=== PATIENT | male | born 1980 | race African-American/Black ===

== ENCOUNTER 2017-07-19 20:08 | Inpatient (IN) | payer MEDICAID, OTHER ==
[~2017-07-19] VITALS: Ht 177.8 cm; Wt 75.7 kg
[2017-07-19] MEDS ORDERED: DiphenhydrAMINE HCL 50 MG/ML VIAL IM ONE (21:45)
[2017-07-19] MEDS ORDERED: LORazepam 2 MG/ML VIAL IM ONE (21:45)
[2017-07-19] MEDS ORDERED: HALOPERIDOL LACTATE 5 MG/ML VIAL IM ONE (21:45)
[2017-07-20] MEDS ORDERED: LORazepam 2 MG TABLET PO PRN (04:30)
[2017-07-20] MEDS ORDERED: OLANZapine 5 MG RAPDIS TABLET PO PRN (04:30)
[2017-07-20] MEDS ORDERED: ZOLPIDEM TARTRATE 10 MG TABLET PO PRN (04:30)
[2017-07-20] MEDS ORDERED: INFLUENZA VIRUS VACCINE QVS 2017-18 (3YR+)/PF 60 MCG/0.5 ML SYRINGE IM ONE (05:45)
[2017-07-20 05:58] VITALS: BP 149/80
[2017-07-20] MEDS ORDERED: PROMETHAZINE HCL 25 MG TABLET PO PRN (09:30)
[2017-07-20] MEDS ORDERED: ACETAMINOPHEN 325 MG TABLET PO PRN (09:30)
[2017-07-20] MEDS ORDERED: MAG HYDROX/AL HYDROX/SIMETH ES 30 ML SUSPENSION UDCUP PO PRN (09:30)
[2017-07-20] MEDS ORDERED: MAGNESIUM HYDROXIDE SUSPENSION 30 ML UDCUP PO PRN (09:30)
[2017-07-20] MEDS ORDERED: LOPERAMIDE HCL 2 MG CAPSULE PO PRN (09:30)
[2017-07-20] MEDS ORDERED: HydrOXYzine PAMOATE 50 MG CAPSULE PO PRN (09:30)
[2017-07-20] MEDS ORDERED: TUBERCULIN, PURIFIED PROTEIN DERIVATIVE 5 TU/0.1 ML SYG ID ONE (09:30)
[2017-07-20] MEDS ORDERED: GuaiFENesin/D-METHORPHAN [SUGAR-FREE] 200-20MG/10 ML SYRUP UDCUP PO PRN (09:30)
[2017-07-20] MEDS ORDERED: CloNIDine HCL 0.1 MG TABLET PO PRN (10:30)
[2017-07-20] MEDS: THIAMINE HCL 100 MG TABLET PO SCH (17:00)
[2017-07-20] MEDS: OLANZapine 5 MG RAPDIS TABLET PO SCH (20:45)
[2017-07-21] MEDS: NALTREXONE HCL 50 MG TABLET PO SCH (08:21)
[2017-07-21] MEDS: FOLIC ACID 1 MG TABLET PO SCH (08:21)
[2017-07-21] MEDS: MULTIVITAMINS WITH MINERALS, THERAPEUTIC TABLET PO SCH (08:21)
[2017-07-21] MEDS: THIAMINE HCL 100 MG TABLET PO SCH ×2 (08:22→17:00)
[2017-07-21] MEDS: OLANZapine 5 MG RAPDIS TABLET PO SCH (20:37)
[2017-07-22] MEDS: NALTREXONE HCL 50 MG TABLET PO SCH (08:35)
[2017-07-22] MEDS: THIAMINE HCL 100 MG TABLET PO SCH ×2 (08:35→16:54)
[2017-07-22] MEDS: FOLIC ACID 1 MG TABLET PO SCH (08:35)
[2017-07-22] MEDS: MULTIVITAMINS WITH MINERALS, THERAPEUTIC TABLET PO SCH (08:35)
[2017-07-22 19:23] VITALS: BP 126/85
[2017-07-22] MEDS: OLANZapine 5 MG RAPDIS TABLET PO SCH (20:11)
[2017-07-23 06:23] VITALS: BP 115/68
[2017-07-23 08:18] VITALS: BP 123/65
[2017-07-23] MEDS: FOLIC ACID 1 MG TABLET PO SCH (09:43)
[2017-07-23] MEDS: THIAMINE HCL 100 MG TABLET PO SCH (09:43)
[2017-07-23] MEDS: MULTIVITAMINS WITH MINERALS, THERAPEUTIC TABLET PO SCH (09:43)
[2017-07-23] MEDS: NALTREXONE HCL 50 MG TABLET PO SCH (09:44)
[2017-07-23] MEDS ORDERED: NALT50TA6 PO (11:45)
[2017-07-23] MEDS ORDERED: OLAN5TAB40 PO (11:45)
== END 2017-07-23 13:40 | disposition home or self-care (01) | DRG 750 ==
LOC: EMS 20:14 → B3A 07-20 04:33
PROVIDERS: ADMIT Psychiatry & Neurology Psychiatry; ATTEND Psychiatry & Neurology Psychiatry
DX: F25.0 Schizoaffective disorder, bipolar type (principal); F39 Unspecified mood [affective] disorder; F15.10 Other stimulant abuse, uncomplicated; Z71.51 Drug abuse counseling and surveillance of drug abuser; F17.210 Nicotine dependence, cigarettes, uncomplicated; G47.00 Insomnia, unspecified; K59.00 Constipation, unspecified; Z65.3 Problems related to other legal circumstances; Z91.19 Patient's noncompliance with other medical treatment and regimen; Z28.21 Immunization not carried out because of patient refusal
CPT/HCPCS: 96372; 99285; J1200; J1630; J2060

== ENCOUNTER 2017-09-06 17:59 | Inpatient (IN) | payer MEDICAID, OTHER ==
[~2017-09-06] VITALS: Ht 175.3 cm; Wt 75.4 kg
[~2017-09-06 17:59] MED LIST: NALT50TA6 PO; OLAN5TAB40 PO
[2017-09-06] MEDS ORDERED: LURA20TA PO (18:27)
[2017-09-06] MEDS ORDERED: BUPR75 PO (18:27)
[2017-09-06] MEDS ORDERED: DiphenhydrAMINE HCL 50 MG/ML VIAL IM ONE (19:30)
[2017-09-06] MEDS ORDERED: LORazepam 2 MG/ML VIAL IM ONE (19:30)
[2017-09-06] MEDS ORDERED: HALOPERIDOL LACTATE 5 MG/ML VIAL IM ONE (19:30)
[2017-09-06] MEDS ORDERED: LORazepam 2 MG TABLET PO PRN (20:30)
[2017-09-06] MEDS ORDERED: OLANZapine 5 MG RAPDIS TABLET PO PRN (20:30)
[2017-09-07 16:00] VITALS: BP 131/73
[2017-09-07] MEDS ORDERED: GuaiFENesin/D-METHORPHAN [SUGAR-FREE] 200-20MG/10 ML SYRUP UDCUP PO PRN (16:15)
[2017-09-07] MEDS ORDERED: MAG HYDROX/AL HYDROX/SIMETH ES 30 ML SUSPENSION UDCUP PO PRN (16:15)
[2017-09-07] MEDS ORDERED: LOPERAMIDE HCL 2 MG CAPSULE PO PRN (16:15)
[2017-09-07] MEDS ORDERED: MAGNESIUM HYDROXIDE SUSPENSION 30 ML UDCUP PO PRN (16:15)
[2017-09-07] MEDS ORDERED: PALIPERIDONE PALMITATE 234 MG/1.5 ML SYRINGE IM ONE (16:15)
[2017-09-07] MEDS ORDERED: PALIPERIDONE 3 MG ER TABLET PO PRN (16:15)
[2017-09-07] MEDS ORDERED: HydrOXYzine PAMOATE 50 MG CAPSULE PO PRN (16:15)
[2017-09-07] MEDS ORDERED: ACETAMINOPHEN 325 MG TABLET PO PRN (16:15)
[2017-09-07] MEDS ORDERED: PROMETHAZINE HCL 25 MG TABLET PO PRN (16:15)
[2017-09-07] MEDS: THIAMINE HCL 100 MG TABLET PO SCH (17:25)
[2017-09-07] MEDS ORDERED: INFLUENZA VIRUS VACCINE QVS 2017-18 (3YR+)/PF 60 MCG/0.5 ML SYRINGE IM ONE (19:00)
[2017-09-07] MEDS: PALIPERIDONE 3 MG ER TABLET PO SCH (20:41)
[2017-09-07] MEDS: ZOLPIDEM TARTRATE 10 MG TABLET PO PRN (20:41)
[2017-09-08 07:06] VITALS: BP 122/82
[2017-09-08 08:31] VITALS: BP 133/73
[2017-09-08] MEDS: MULTIVITAMINS WITH MINERALS, THERAPEUTIC TABLET PO SCH (09:08)
[2017-09-08] MEDS: THIAMINE HCL 100 MG TABLET PO SCH ×2 (09:08→16:58)
[2017-09-08] MEDS: FOLIC ACID 1 MG TABLET PO SCH (09:08)
[2017-09-08 16:00] VITALS: BP 130/76
[2017-09-08] MEDS ORDERED: NALT50TA6 PO (17:53)
[2017-09-08] MEDS ORDERED: BUPR-47 PO (17:53)
[2017-09-08] MEDS ORDERED: PALI3 PO (17:53)
[2017-09-08] MEDS: ZOLPIDEM TARTRATE 10 MG TABLET PO PRN (20:29)
[2017-09-08] MEDS: PALIPERIDONE 3 MG ER TABLET PO SCH (20:29)
[2017-09-08] MEDS ORDERED: BuPROPion HCL XL 150 MG ER TABLET PO SCH (21:00)
[2017-09-09 06:39] VITALS: BP 133/78
[2017-09-09 08:28] VITALS: BP 132/78
[2017-09-09] MEDS ORDERED: NALTREXONE HCL 50 MG TABLET PO SCH (09:00)
[2017-09-09] MEDS ORDERED: BUPR-93 PO (09:08)
[2017-09-09] MEDS ORDERED: PALI3 PO (09:10)
[2017-09-09] MEDS: MULTIVITAMINS WITH MINERALS, THERAPEUTIC TABLET PO SCH (09:19)
[2017-09-09] MEDS: FOLIC ACID 1 MG TABLET PO SCH (09:19)
[2017-09-09] MEDS: THIAMINE HCL 100 MG TABLET PO SCH (09:19)
[2017-09-11] MEDS ORDERED: PALIPERIDONE PALMITATE 156 MG/ML SYRINGE IM ONE (09:00)
== END 2017-09-09 13:20 | disposition home or self-care (01) | DRG 750 ==
LOC: EMS 19:08 → B3A 09-07 13:26
PROVIDERS: ADMIT Psychiatry & Neurology Psychiatry; ATTEND Psychiatry & Neurology Psychiatry
DX: F20.0 Paranoid schizophrenia (principal); Z91.19 Patient's noncompliance with other medical treatment and regimen; F15.10 Other stimulant abuse, uncomplicated; F10.10 Alcohol abuse, uncomplicated; F17.210 Nicotine dependence, cigarettes, uncomplicated; G47.00 Insomnia, unspecified; K59.00 Constipation, unspecified; Z71.6 Tobacco abuse counseling; Z71.51 Drug abuse counseling and surveillance of drug abuser; Z65.3 Problems related to other legal circumstances; Z71.41 Alcohol abuse counseling and surveillance of alcoholic; Z28.21 Immunization not carried out because of patient refusal
CPT/HCPCS: 90471; 96372; 99285; J1200; J1630; J2060

== ENCOUNTER 2020-07-26 10:38 | Inpatient (IN) | payer MEDICAID, OTHER ==
[~2020-07-26] VITALS: Ht 177.8 cm; Wt 69.4 kg
[~2020-07-26 10:38] MED LIST changes: +BUPR-47 PO; +BUPR-93 PO; -OLAN5TAB40 PO; +PALI3TAB14 PO
[2020-07-26] MEDS ORDERED: LORazepam 2 MG/ML VIAL IM ONE (13:45)
[2020-07-26] MEDS ORDERED: HALOPERIDOL LACTATE 5 MG/ML VIAL IM ONE (13:45)
[2020-07-26] MEDS ORDERED: ZOLPIDEM TARTRATE 10 MG TABLET PO PRN (15:45)
[2020-07-26] MEDS ORDERED: HALOPERIDOL 5 MG TABLET PO PRN (15:45)
[2020-07-26] MEDS ORDERED: LORazepam 2 MG TABLET PO PRN (15:45)
[2020-07-26 15:47] LABS: COVID AG,FIA SOURCE NASOPHARYNGEAL
[2020-07-26 16:56] LABS: BASOPHILS % (AUTO) 0.5 % (0.0-2.0); HEMATOCRIT 44.4 % (41-53); HEMOGLOBIN 15.5 g/dL (13.5-17.5); LYMPHOCYTES # (AUTO) 2.2 K/uL (1.0-4.8); LYMPHOCYTES % (AUTO) 34.7 % (22.0-44.0); MEAN CORPUSCULAR HEMOGLOBIN 32.5 pg (26.0-34.0); MEAN CORPUSCULAR HGB CONC 34.9 G/dL (31.0-37.0); MEAN CORPUSCULAR VOLUME 93 fL (80-100); MONOCYTES # (AUTO) 0.4 K/uL (0.1-1.0); MONOCYTES % (AUTO) 6.3 % (2.0-9.0); NEUTROPHILS # (AUTO) 3.7 K/uL (1.8-7.7); NEUTROPHILS % (AUTO) 57.5 % (40.0-70.0); PLATELET COUNT (AUTO) 248 K/uL (150-450); RED BLOOD CELL COUNT(AUTO) 4.78 MIL/uL (4.50-5.90); RED CELL DISTRIBUTION WIDTH 13.7 % (11.5-14.5)
[2020-07-26 17:03] LABS: ANION GAP 8 mmol/L (8-16); CALCIUM, TOTAL 9.5 mg/dL (8.8-10.5); CARBON DIOXIDE 28 mmol/L (22-29); CHLORIDE 105 mmol/L (98-107); CREATININE 0.83 mg/dL (0.60-1.30); GLOMERULAR FILTR. RATE CALC > 60 mL/min (>60); GLUCOSE,RANDOM 149 mg/dL (70-110); POTASSIUM 3.5 mmol/L (3.5-5.1); SODIUM SERUM 141 mmol/L (136-145); UREA NITROGEN, BLOOD 11 mg/dL (7-18)
[2020-07-26 17:08] LABS: ALANINE AMINOTRANSFERASE 18 U/L (12-78); ALBUMIN 3.6 g/dL (3.4-5.0); ALKALINE PHOSPHATASE 62 U/L (46-116); ASPARTATE AMINOTRANSFERASE 18 U/L (15-37); BILIRUBIN,TOTAL 0.4 mg/dL (0.1-1.0); TOTAL PROTEIN, SERUM 7.2 g/dL (6.4-8.2)
[2020-07-26 19:15] VITALS: BP 138/92
[2020-07-26] MEDS ORDERED: INFLUENZA VIRUS VACCINE QVS 2020-21 (6MO+)/PF 60 MCG/0.5 ML SYRINGE IM ONE (19:45)
[2020-07-27 06:23] VITALS: BP 129/88
[2020-07-27 08:22] VITALS: BP 131/87
[2020-07-27] MEDS ORDERED: IBUPROFEN 400 MG TABLET PO PRN (09:15)
[2020-07-27] MEDS ORDERED: PETROLATUM,WHITE 28 GM JELLY TP PRN (09:15)
[2020-07-27] MEDS ORDERED: MAGNESIUM HYDROXIDE SUSPENSION 30 ML UDCUP PO PRN (09:15)
[2020-07-27] MEDS ORDERED: LOPERAMIDE HCL 2 MG CAPSULE PO PRN (09:15)
[2020-07-27] MEDS ORDERED: NICOTINE 14 MG/24 HOUR PATCH TD PRN (09:15)
[2020-07-27] MEDS ORDERED: ACETAMINOPHEN 325 MG TABLET PO PRN (09:15)
[2020-07-27] MEDS ORDERED: MAG HYDROX/AL HYDROX/SIMETH ES 30 ML SUSPENSION UDCUP PO PRN (09:15)
[2020-07-27] MEDS ORDERED: CloNIDine HCL 0.1 MG TABLET PO PRN (09:15)
[2020-07-27] MEDS ORDERED: GuaiFENesin/D-METHORPHAN [SUGAR-FREE] 200-20MG/10 ML SYRUP UDCUP PO PRN (09:15)
[2020-07-27] MEDS ORDERED: ALBUTEROL SULFATE HFA 90 MCG/PUFF 8 GM INHALER IH PRN (09:15)
[2020-07-27] MEDS ORDERED: DOCUSATE SODIUM 100 MG CAPSULE PO PRN (09:15)
[2020-07-27] MEDS ORDERED: ONDANSETRON HCL 4 MG TABLET PO PRN (09:15)
[2020-07-27] MEDS: BuPROPion HCL XL 150 MG ER TABLET PO SCH (20:08)
[2020-07-27] MEDS: PALIPERIDONE 3 MG ER TABLET PO SCH (20:08)
[2020-07-28 04:30] VITALS: BP 111/66
[2020-07-28 08:18] VITALS: BP 127/67
[2020-07-28 16:00] VITALS: BP 136/92
[2020-07-28] MEDS: PALIPERIDONE 3 MG ER TABLET PO SCH (20:08)
[2020-07-28] MEDS: BuPROPion HCL XL 150 MG ER TABLET PO SCH (20:08)
[2020-07-29 04:00] VITALS: BP 111/66
[2020-07-29 08:09] VITALS: BP 114/80
[2020-07-29] MEDS ORDERED: PALI3TAB14 PO (08:41)
[2020-07-29] MEDS ORDERED: BUPR-47 PO (08:41)
== END 2020-07-29 13:20 | disposition home or self-care (01) | DRG 750 ==
LOC: EMS 10:38 → B3A 16:31
DX: F25.1 Schizoaffective disorder, depressive type (principal); F15.10 Other stimulant abuse, uncomplicated; F41.9 Anxiety disorder, unspecified; K59.00 Constipation, unspecified; R73.9 Hyperglycemia, unspecified; Z20.828 Contact with and (suspected) exposure to other viral communicable diseases; R45.850 Homicidal ideations; Z56.0 Unemployment, unspecified; Z78.1 Physical restraint status; Z79.899 Other long term (current) drug therapy; Z28.21 Immunization not carried out because of patient refusal; Z72.89 Other problems related to lifestyle
CPT/HCPCS: 87426; 90686; G0480; J1630; J2060

== ENCOUNTER 2023-04-12 17:28 | Emergency (ER) | payer MEDICAID ==
[~2023-04-12] VITALS: Ht 175.3 cm; Wt 77.3 kg
[~2023-04-12 17:28] MED LIST changes: -BUPR-47 PO; +BUPR-49 PO; -BUPR-93 PO; -NALT50TA6 PO
[2023-04-12 17:43] VITALS: BP 142/96; PULSE 121; RESP 18; TEMP 98.8
== END 2023-04-12 23:12 | disposition left against medical advice (07) ==
LOC: EMS 17:29
DX: Z53.21 Procedure and treatment not carried out due to patient leaving prior to being seen by health care provider (principal)
CPT/HCPCS: 99281; Z7502

== ENCOUNTER 2024-07-09 20:51 | Inpatient (IN) | payer MEDICAID, OTHER ==
[~2024-07-09] VITALS: Ht 177.8 cm; Wt 81.6 kg
[2024-07-10 01:06] LABS: GLUCOMETER DEV NAME(LOC) POC.BV; POC SARS-COV2 AG, FIA NEGATIVE (NEGATIVE)
[2024-07-10] MEDS ORDERED: ZOLPIDEM TARTRATE 10 MG TABLET PO PRN (01:15)
[2024-07-10] MEDS: HALOPERIDOL 5 MG TABLET PO PRN (03:17)
[2024-07-10] MEDS: LORazepam 2 MG TABLET PO PRN (03:18)
[2024-07-10 03:27] VITALS: BP 148/98; PULSE 67; RESP 18; TEMP 97.9; O2SAT 97
[2024-07-10] MEDS ORDERED: MAGNESIUM HYDROXIDE SUSPENSION 30 ML UDCUP PO PRN (07:00)
[2024-07-10] MEDS ORDERED: PETROLATUM,WHITE 28 GM JELLY TP PRN (07:00)
[2024-07-10] MEDS ORDERED: GuaiFENesin/D-METHORPHAN [SUGAR-FREE] 200-20MG/10 ML SYRUP UDCUP PO PRN (07:00)
[2024-07-10] MEDS ORDERED: MAG HYDROX/ALUMINUM HYD/SIMETH ES 30 ML SUSPENSION UDCUP PO PRN (07:00)
[2024-07-10] MEDS ORDERED: ALBUTEROL SULFATE HFA 90 MCG/PUFF 8 GM INHALER IH PRN (07:00)
[2024-07-10] MEDS ORDERED: DOCUSATE SODIUM 100 MG CAPSULE PO PRN (07:00)
[2024-07-10] MEDS ORDERED: IBUPROFEN 400 MG TABLET PO PRN (07:00)
[2024-07-10] MEDS ORDERED: CloNIDine HCL 0.1 MG TABLET PO PRN (07:00)
[2024-07-10] MEDS ORDERED: ONDANSETRON 4 MG TABLET PO PRN (07:00)
[2024-07-10] MEDS ORDERED: LOPERAMIDE HCL 2 MG CAPSULE PO PRN (07:00)
[2024-07-10] MEDS ORDERED: ACETAMINOPHEN 325 MG TABLET PO PRN (07:00)
[2024-07-10] MEDS ORDERED: NICOTINE 14 MG/24 HOUR PATCH TD PRN (07:00)
[2024-07-10 08:23] VITALS: BP 120/69; PULSE 58; RESP 17; TEMP 97.5; O2SAT 97
[2024-07-10 08:49] LABS: BASOPHILS % (AUTO) 0.9 % (0.0-2.0); EOSINOPHILS % (AUTO) 4.1 % (1.0-6.0); HEMATOCRIT 43.6 % (41-53); HEMOGLOBIN 14.9 g/dL (13.5-17.5); LYMPHOCYTES # (AUTO) 2.4 K/uL (1.0-4.8); LYMPHOCYTES % (AUTO) 51.5 % (22.0-44.0); MEAN CORPUSCULAR HEMOGLOBIN 32.2 pg (26.0-34.0); MEAN CORPUSCULAR HGB CONC 34.2 G/dL (31.0-37.0); MEAN CORPUSCULAR VOLUME 94 fL (80-100); MONOCYTES # (AUTO) 0.4 K/uL (0.1-1.0); MONOCYTES % (AUTO) 9.1 % (2.0-9.0); NEUTROPHILS # (AUTO) 1.6 K/uL (1.8-7.7); NEUTROPHILS % (AUTO) 34.4 % (40.0-70.0); PLATELET COUNT (AUTO) 217 K/uL (150-450); RED BLOOD CELL COUNT(AUTO) 4.62 MIL/uL (4.50-5.90); RED CELL DISTRIBUTION WIDTH 13.4 % (11.5-14.5); WHITE BLOOD COUNT (AUTO) 4.7 K/uL (4.5-11.0)
[2024-07-10 09:08] LABS: HEMOGLOBIN A1C 5.8 % (3.8-5.6)
[2024-07-10 09:19] LABS: ALANINE AMINOTRANSFERASE 20 U/L (12-78); ALBUMIN 3.3 g/dL (3.4-5.0); ALKALINE PHOSPHATASE 76 U/L (46-116); ANION GAP 3 mmol/L (8-16); ASPARTATE AMINOTRANSFERASE 27 U/L (15-37); BILIRUBIN,TOTAL 0.3 mg/dL (0.1-1.0); CALCIUM, TOTAL 9.1 mg/dL (8.8-10.5); CARBON DIOXIDE 30 mmol/L (22-29); CHLORIDE 107 mmol/L (98-107); CHOL/HDL RATIO 2.6 (4.2-7.3); CHOLESTEROL 141 mg/dL (131-200); CREATININE 1.12 mg/dL (0.60-1.30); FREE T4 (FREE THYROXINE) 0.87 ng/dL (0.76-1.46); GLOMERULAR FILTR. RATE CALC > 60 mL/min (>60); GLUCOSE,RANDOM 109 mg/dL (70-110); HDL CHOLESTEROL 55 mg/dL (40-60); LDL CHOL (CALC.) 78 mg/dL (0-130); POTASSIUM 3.9 mmol/L (3.5-5.1); SODIUM SERUM 140 mmol/L (136-145); THYROID STIMULATING HORMONE 0.74 uIU/mL (0.36-3.74); TOTAL PROTEIN, SERUM 6.9 g/dL (6.4-8.2); TRIGLYCERIDES 42 mg/dL (15-150); UREA NITROGEN, BLOOD 18 mg/dL (7-18)
[2024-07-10] MEDS: ARIPiprazole 5 MG TABLET PO SCH (11:11)
[2024-07-10 20:02] VITALS: BP 123/76; PULSE 63; RESP 18; TEMP 97.9
[2024-07-11 08:07] LABS: HEPATITIS C AB (EIA) Non Reactive (Non Reactive)
[2024-07-11 08:42] LABS: APPEARANCE,URINE CLEAR (CLEAR); BILIRUBIN,URINE NEGATIVE (NEGATIVE); COLOR,URINE LIGHT YELLOW (YELLOW); GLUCOSE, URINE (UA) NEGATIVE (NEGATIVE); KETONES,URINE NEGATIVE (NEGATIVE); LEUKOCYTE ESTERASE ,URINE NEGATIVE (NEGATIVE); NITRATE,URINE NEGATIVE (NEGATIVE); OCCULT BLOOD,URINE NEGATIVE (NEGATIVE); PH,URINE 6.5 (5.0-8.0); PH,URINE DRUG SCREEN 6.5 (5.0-8.0); PROTEIN,URINE NEGATIVE (NEGATIVE); SPECIFIC GRAVITIY, URINE 1.026 (1.003-1.030); UROBILINOGEN,URINE <=1.0 mg/dL (<=1.0)
[2024-07-11 08:48] VITALS: BP 137/95; PULSE 90; RESP 16; TEMP 97.8; O2SAT 98
[2024-07-11 08:51] LABS: ALCOHOL, URINE DRUG SCREEN NEGATIVE (NEGATIVE); AMPHET/METH SCREEN,URINE NEGATIVE (NEGATIVE); BARBITURATE SCREEN, URINE NEGATIVE (NEGATIVE); BENZODIAZEPINES SCREEN,URINE NEGATIVE (NEGATIVE); CANNABINOID SCREEN,URINE NEGATIVE (NEGATIVE); COCAINE SCREEN,URINE NEGATIVE (NEGATIVE); METHADONE SCREEN, URINE NEGATIVE (NEGATIVE); OPIATE SCREEN,URINE NEGATIVE (NEGATIVE); PHENCYCLIDINE SCREEN,URINE NEGATIVE (NEGATIVE)
[2024-07-11] MEDS: AmLODIPine BESYLATE 5 MG TABLET PO SCH (09:46)
[2024-07-11] MEDS ORDERED: ARIP5TAB37 PO (11:49)
== END 2024-07-11 15:10 | DRG 750 ==
LOC: B3A 07-10 01:11
PROVIDERS: ADMIT Psychiatry & Neurology Child & Adolescent Psychiatry; ATTEND Psychiatry & Neurology Child & Adolescent Psychiatry
PROC: GZ56ZZZ Individual Psychotherapy, Supportive (ICD-10-PCS; principal; 2024-07-11)
DX: F25.0 Schizoaffective disorder, bipolar type (principal); F10.10 Alcohol abuse, uncomplicated; F41.9 Anxiety disorder, unspecified; I10 Essential (primary) hypertension; Z20.822 Contact with and (suspected) exposure to COVID-19; F19.10 Other psychoactive substance abuse, uncomplicated
CPT/HCPCS: 80053; 80061; 80307; 81003; 83036; 84439; 84443; 85025; 86592; 86803; 87340